=== PATIENT | female | born 1990 | race Caucasian/White ===

== ENCOUNTER 2022-11-11 22:49 | Emergency (ER) | payer SELFPAY ==
[2022-11-11] MEDS ORDERED: LORazepam 2 MG/ML SDV IM ONE (23:03)
== END 2022-11-12 00:21 | disposition home or self-care (01) ==
LOC: JD.ED 22:49
DX: F41.0 Panic disorder [episodic paroxysmal anxiety] (principal); F17.290 Nicotine dependence, other tobacco product, uncomplicated
CPT/HCPCS: 96372; 99284; J2060; 99283